=== PATIENT | male | born 1985 | race Caucasian/White ===

== ENCOUNTER 2017-05-15 00:44 | Emergency (ER) | payer SELFPAY ==
[~2017-05-15] VITALS: Ht 182.9 cm; Wt 68.0 kg
[~2017-05-15 00:44] MED LIST: CEPH500C3 PO; CYCL-36 PO; DARV PO; DICL75 PO
[2017-05-15 00:46] VITALS: BP 138/81; PULSE 91; RESP 20; TEMP 98.2; O2SAT 97
[2017-05-15 01:43] VITALS: BP 110/58; PULSE 83; O2SAT 95
[2017-05-15] MEDS ORDERED: ACETAMINOPHEN 325 MG TAB PO ONE (02:15)
--- NOTE | 2017-05-15 02:18 | RADRPT ---
EXAM DATE/TIME: 05/15/2017 01:59 [facility] COMPARISON: No previous studies available for comparison. INDICATIONS : Chest pain. Left side. MEDICAL HISTORY : None. SURGICAL HISTORY : None. ENCOUNTER: Initial ACUITY: 1 day PAIN SCORE: 0/10 LOCATION: Bilateral chest FINDINGS: A single view of the chest demonstrates the lungs to be symmetrically aerated without evidence of mas s, infiltrate or effusion. The cardiomediastinal contours are unremarkable. There are some old right -sided rib fractures with callus formation.. CONCLUSION: No acute intrathoracic disease. Nikhil Liang MD on May 15, 2017 at 2:15 Board Certified Radiologist. This report was verified electronically.
[2017-05-15 02:28] VITALS: O2SAT 100
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
[2017-05-15 02:37] LABS: AUTOMATED NEUTROPHIL # 4.8 TH/MM3 (1.8-7.7); BASOPHIL % 0.4 % (0.0-2.0); EOSINOPHIL % 0.5 % (0.0-4.0); HEMATOCRIT 31.5 % (39.0-51.0); HEMO FLAGS DIFF FINAL; LYMPH % 13.8 % (9.0-44.0); LYMPHOCYTE # 0.9 TH/MM3 (1.0-4.8); MEAN CELL VOLUME 75.5 FL (80.0-100.0); MEAN CORPUSCULAR HEMOGLOBIN 24.5 PG (27.0-34.0); MEAN CORPUSCULAR HGB CONC 32.4 % (32.0-36.0); MONO % 10.5 % (0.0-8.0); NEUT % 74.8 % (16.0-70.0); PLATELET COUNT 250 TH/MM3 (150-450); RED BLOOD COUNT 4.17 MIL/MM3 (4.50-5.90); RED CELL DISTRIBUTION WIDTH 16.2 % (11.6-17.2); WHITE BLOOD COUNT 6.4 TH/MM3 (4.0-11.0)
[2017-05-15 02:59] LABS: ALT (GPT) 18 U/L (12-78); ANION GAP 8 MEQ/L (5-15); AST (GOT) 18 U/L (15-37); BICARBONATE 27.2 MEQ/L (21.0-32.0); BLOOD UREA NITROGEN 10 MG/DL (7-18); CHLORIDE 96 MEQ/L (98-107); GLOMERULAR FILTRATION RATE 106 ML/MIN (>89); MAGNESIUM 1.9 MG/DL (1.5-2.5); POTASSIUM 4.1 MEQ/L (3.5-5.1); SODIUM (NA) 131 MEQ/L (136-145)
[2017-05-15 03:02] LABS: ALKALINE PHOSPHATASE 91 U/L (45-117); TOTAL BILIRUBIN ADULT 0.5 MG/DL (0.2-1.0)
[2017-05-15 03:05] LABS: BLOOD, URINE MOD (NEG); CALCIUM OXALATE CRYSTALS,URINE OCC /hpf; COMMENT (UR) CULT NOT INDICATED; CULTURE IF INDICATED CULT NOT INDICATED; GLUCOSE,URINE NEG (NEG); KETONE, URINE NEG (NEG); MUCUS URINE MANY /lpf (OCC); NITRITE,URINE NEG (NEG); PH, URINE 6.5 (5.0-8.5); SQUAMOUS EPITHELIAL CELL URINE <1 /hpf (0-5); URINE COLOR YELLOW (YELLW/STRAW)
[2017-05-15 03:08] LABS: CREATINE KINASE 23 U/L (39-308)
[2017-05-15] MEDS ORDERED: IOHEXOL 350 MG/ML 10 ML VIAL (for RAD DIAG) IV ONE (03:22)
[2017-05-15] MEDS ORDERED: ONDANSETRON HCL 4 MG/2 ML VIAL IV ONE (03:30)
[2017-05-15] MEDS ORDERED: MORPHINE SULFATE 8 MG/ML INJ IV PUSH ONE (03:30)
[2017-05-15] MEDS ORDERED: SODIUM CHLOR 0.9% 1000 ML INJ 1,000 ML IV ONE (03:30)
[2017-05-15 03:35] VITALS: BP 104/56; PULSE 67; RESP 22; O2SAT 100
--- NOTE | 2017-05-15 03:39 | RADRPT ---
EXAM DATE/TIME: 05/15/2017 03:18 [facility] COMPARISON: No previous studies available for comparison. INDICATIONS : Trauma, fell hitting left side of body. IV CONTRAST: 84 cc Omnipaque 350 (iohexol) IV ; Cumulative dose for multiple exams. ORAL CONTRAST: No oral contrast ingested. RADIATION DOSE: 5.63 CTDIvol (mGy) ; Combined studies - Thorax/Abdomen/Pelvis MEDICAL HISTORY : None SURGICAL HISTORY : None. ENCOUNTER: Initial ACUITY: 1 day PAIN SCALE: 8/10 LOCATION: Left abdomen TECHNIQUE: Volumetric scanning of the abdomen and pelvis was performed. Using automated exposure control and ad justment of the mA and/or kV according to patient size, radiation dose was kept as low as reasonably achievable to obtain optimal diagnostic quality images. DICOM format image data is available electro nically for review and comparison. FINDINGS: LOWER LUNGS: 6 mm pulmonary nodule left lung base. Right lung base clear. LIVER: Homogeneous density without lesion. The liver appears enlarged measuring 25 cm. There is no dilation of the biliary tree. No calcified gallstones. No evidence of free fluid. SPLEEN: Normal size without lesion. The spleen is enlarged measuring 17.1 cm. PANCREAS: Within normal limits. KIDNEYS: Normal in size and shape. There is no mass, stone or hydronephrosis. ADRENAL GLANDS: Within normal limits. VASCULAR: There is no aortic aneurysm. BOWEL/MESENTERY: The stomach, small bowel, and colon demonstrate no acute abnormality. There is no free intraperitone al air or fluid. No inflammatory changes. ABDOMINAL WALL: Within normal limits. RETROPERITONEUM: There is no lymphadenopathy. BLADDER: No wall thickening or mass. REPRODUCTIVE: Within normal limits. INGUINAL: There is no lymphadenopathy or hernia. MUSCULOSKELETAL: Within normal limits for patient age. CONCLUSION: 1. Hepatosplenomegaly. 2. 6 mm pulmonary nodule left lung base. 3. No acute intra-abdominal or pelvic pathology. Nikhil Liang MD on May 15, 2017 at 3:34 Board Certified Radiologist. This report was verified electronically.
--- NOTE | 2017-05-15 03:46 | RADRPT ---
EXAM DATE/TIME: 05/15/2017 03:18 [place] Corrected on: May 15, 2017; [facility] COMPARISON: No previous studies available for comparison. INDICATIONS : Trauma, fell hitting left side of chest. IV CONTRAST: 84 cc Omnipaque 350 (iohexol) IV ; Cumulative dose for multiple exams. RADIATION DOSE: 5.63 CTDIvol (mGy) ; Combined studies - Thorax/Abdomen/Pelvis MEDICAL HISTORY : None SURGICAL HISTORY : None. ENCOUNTER: Initial ACUITY: 1 day PAIN SCALE: 8/10 LOCATION: Left chest TECHNIQUE: Volumetric scanning of the chest was performed. Using automated exposure control and adjustment of t he mA and/or kV according to patient size, radiation dose was kept as low as reasonably achievable to obtain optimal diagnostic quality images. DICOM format image data is available electronically for review and comparison. Follow-up recommendations for incidentally detected pulmonary nodules are based at a minimum on nodul e size and patient risk factors according to Fleischner Society Guidelines. FINDINGS: LUNGS: There is a 1 cm nodular infiltrate in the right upper lung. There is mild atelectasis in the right shikha ng base. Otherwise the right lung is clear. There is a 1.1 cm infiltrate in the peripheral aspect of the left upper lung. There is a 6 mm pulmonary nodule in the left lung base. Otherwise the left lung is clear. No pneumothorax. PLEURA: There is no pleural thickening or pleural effusion. MEDIASTINUM: The heart and great vessels demonstrate no acute abnormality. There is no mediastinal or hilar lymph adenopathy. AXILLAE: Within normal limits. No lymphadenopathy. SKELETAL: There is a subacute rib fracture involving the anterior right fifth rib and anterior left fifth rib w ith callus formation. There is a nondisplaced cortical fracture involving the posterior left 10th rib . There is a pectus excavatum. MISCELLANEOUS: The visualized upper abdominal organs demonstrate no acute abnormality. CONCLUSION: 1. 1 cm nodular infiltrate right upper lung. 2. 1.1 cm infiltrate in the peripheral aspect the left upper lung. 3. 6 mm pulmonary nodule left lung base. 4. Subacute to chronic rib fractures involving the anterior right and left fifth ribs. 5. Nondisplaced cortical fracture involving the posterior left 10th rib 6. Pectus excavatum Nikhil Liang MD on May 15, 2017 at 3:38 Board Certified Radiologist. This report was verified electronically. Nikhil Liang MD on May 15, 2017 at 5:23 Board Certified Radiologist. This report was verified electronically.
[2017-05-15] MEDS ORDERED: AZIT250T3 PO (04:08)
[2017-05-15] MEDS ORDERED: AZITHROMYCIN 250 MG TAB PO ONE (04:15)
[2017-05-15 04:22] VITALS: BP 108/60; PULSE 71; O2SAT 100
[2017-05-15] MEDS ORDERED: AZITHROMYCIN 250 MG TAB PO SCH (09:00)
--- NOTE | 2017-05-15 18:38 | EKG ---
Date Performed: 05/15/2017 Time Performed: 02:07:09 PTAGE: 32 years EKG: Sinus rhythm WITH SINUS ARRHYTHMIA MARKED LEFT AXIS DEVIATION INCOMPLETE RIGHT BUNDLE BRANCH BLOCK ABNORMAL ECG NO PREVIOUS TRACING DOCTOR: Danny Newell Interpretating Date/Time 05/15/2017 18:37:03
== END 2017-05-15 05:10 | disposition home or self-care (01) ==
LOC: NEPC 00:44
DX: S22.31XA Fracture of one rib, right side, initial encounter for closed fracture (principal); R91.8 Other nonspecific abnormal finding of lung field; R91.1 Solitary pulmonary nodule; R16.2 Hepatomegaly with splenomegaly, not elsewhere classified; Q67.6 Pectus excavatum; R05 Cough; K59.00 Constipation, unspecified; W01.0XXA Fall on same level from slipping, tripping and stumbling without subsequent striking against object, initial encounter; Z79.899 Other long term (current) drug therapy
CPT/HCPCS: 71010; 71260; 74177; 80053; 81001; 82550; 83690; 83735; 84484; 85025; 86140; 93005; 96361; 96374; 96375; 99285; J2270; J2405; J7030; Q9967